=== PATIENT | female | born 1960 | race Caucasian/White ===

== ENCOUNTER → 2024-05-04 | Outpatient (CLI) | payer OTHER ==
[~2024-05-04] MED LIST: ALBU90OI; Aspir 8181 MG PO; FOLI1; HYDROCODONE-AC1 EA19; METHIMAZOLE 5 MG TAB; METHOTREXATE2.5 M1; MOBIC15 MG; OZEMPIC; VITAMIN D3; ZOCOR20 MG
[2024-05-10 23:49] LABS: 6-ACETYLMORPHINE, URN, QUANT <10 ng/mL; CODEINE, URN, QUANT <20 ng/mL; HYDROCODONE, URN, QUANT 31 ng/mL; HYDROMORPHONE, URN, QUANT <20 ng/mL; MORPHINE, URN, QUANT <20 ng/mL; NORHYDROCODONE, URN, QUANT 239 ng/mL; NOROXYCODONE, URN, QUANT <20 ng/mL; NOROXYMORPHONE, URN, QUANT <20 ng/mL; OXYCODONE, URN, QUANT <20 ng/mL; OXYMORPHONE, URN, QUANT <20 ng/mL
== END ==
LOC: LAB 18:12 → LAB SHORT 18:12
PROVIDERS: Physician Assistant
DX: Z51.81 Encounter for therapeutic drug level monitoring (principal); Z79.891 Long term (current) use of opiate analgesic
CPT/HCPCS: G0480

== ENCOUNTER → 2024-09-18 | Outpatient (CLI) | payer OTHER ==
[2024-09-22 10:01] LABS: 6-ACETYLMORPHINE, URN, QUANT <10 ng/mL; CODEINE, URN, QUANT <20 ng/mL; HYDROCODONE, URN, QUANT 694 ng/mL; HYDROMORPHONE, URN, QUANT <20 ng/mL; MORPHINE, URN, QUANT <20 ng/mL; NORHYDROCODONE, URN, QUANT 570 ng/mL; NOROXYCODONE, URN, QUANT <20 ng/mL; NOROXYMORPHONE, URN, QUANT <20 ng/mL; OXYCODONE, URN, QUANT <20 ng/mL; OXYMORPHONE, URN, QUANT <20 ng/mL
== END | disposition home or self-care (01) ==
LOC: LAB SHORT 14:49 → LAB 14:49
PROVIDERS: Physician Assistant
DX: Z51.81 Encounter for therapeutic drug level monitoring (principal); Z79.891 Long term (current) use of opiate analgesic
CPT/HCPCS: G0480

== ENCOUNTER 2024-10-24 07:30 | Day surgery (SDC) | payer OTHER ==
[~2024-10-24] VITALS: Ht 157.5 cm; Wt 105.1 kg
[2024-10-24] VITALS (9 sets, daily range): BP systolic 115–134; BP diastolic 58–77
[~2024-10-24 07:30] MED LIST changes: +ASPI81CH PO; +CALCIUM CIT 311 EAC7 PO; +FOLI1 PO; +MELO7.5 PO; +METHI10 PO; +METTREX2.5 PO; +Norco 5-325 Ta1 EACH PO; +Norco 7.5-3251 EACH PO; +OZEMPIC0.25 MG/02 SC; +ZOCOR20 MG PO
[2024-10-24] MEDS ORDERED: Chlorhexidine Mouth Care 15 ML UDC MT SCH (07:40)
[2024-10-24] MEDS ORDERED: OxyCODONE HCL 10 MG TABCR PO SCH (07:40)
[2024-10-24] MEDS ORDERED: Ropivacaine 0.5% HCl/Pf 123.125 MG,EPINEPHrine HCL 0.25 MG,Ketorolac Tromethamine 15 MG... INFIL SCH (07:40)
[2024-10-24] MEDS ORDERED: Tranexamic Acid 100 ML IV SCH (07:40)
[2024-10-24] MEDS ORDERED: Lactated Ringer's 1,000 ML IV SCH ×2 (07:40→09:50)
[2024-10-24] MEDS ORDERED: Acetaminophen 500 MG Tab PO SCH ×2 (07:40→16:00)
[2024-10-24] MEDS ORDERED: CeFAZolin Sodium 2,000 MG in NS 100 ML IV SCH ×2 (08:20→18:30)
[2024-10-24] MEDS ORDERED: FLU VACC TS2024-25(6MOS UP)/PF 45 MCG/0.5 ML SYRINGE IM SCH (09:40)
[2024-10-24] MEDS ORDERED: Bisacodyl 10 MG Supp PR PRN (09:40)
[2024-10-24] MEDS ORDERED: DiphenhydrAMINE HCL 25 MG Cap PO PRN (09:40)
[2024-10-24] MEDS ORDERED: Promethazine HCl 25 MG Tab PO PRN (09:45)
[2024-10-24] MEDS ORDERED: HYDROmorphone HCl/Pf 1MG SYR IV PRN (09:45)
[2024-10-24] MEDS ORDERED: OxyCODONE HCL 5 MG TAB PO PRN ×2 (09:45)
[2024-10-24] MEDS ORDERED: propofoL 50 ML IV ONE (09:47)
[2024-10-24] MEDS ORDERED: Metoclopramide HCl 5MG / ML 2ML Vial IV PRN (09:50)
[2024-10-24] MEDS ORDERED: Magnesium Hydroxide Conc 10 ML UDC PO PRN (09:50)
[2024-10-24] MEDS ORDERED: Ondansetron HCl 2 MG / ML 2ML Vial IV PRN ×2 (09:50→10:45)
[2024-10-24] MEDS ORDERED: Midazolam HCl 1MG / ML 2ML Vial ONE (10:01)
[2024-10-24] MEDS ORDERED: FentaNYL Citrate 50 MCG/ML 2 ML Injection ONE ×2 (10:01→12:09)
[2024-10-24] MEDS ORDERED: Dexamethasone Sod Phos 10 MG/ML 1ML VIAL ONE (10:33)
[2024-10-24] MEDS ORDERED: propofoL 20 ML IV ONE ×4 (10:59→12:02)
[2024-10-24] MEDS ORDERED: ASPI81CH PO (17:10)
[2024-10-24] MEDS ORDERED: Ketorolac Tromethamine 15mg Vial IV SCH (18:00)
--- NOTE | 2024-10-24 18:58 | NUR ---
DISCHARGE SUMMARY POD0 R TKA, A/OX4, VSS, TOLERATING PO, PAIN WELL MANAGED, WORKED WITH THERAPY AND IS AMBULATING WELL, CRISTAL C/D/I. DISCUSSED DC INSTRUCTION INCLUDING HOME CARE, MEDICATIONS, AND FOLLOW UP APPOINTMENTS. NO QUESTIONS AT THIS TIME, IV ACCESS REMOVED DURING DC INSTRUCTIONS.ESCORTED OUT VIA WC TO PRIVATE AUTO TO GO HOME.
[2024-10-24] MEDS ORDERED: Docusate Sodium 100 MG Cap PO SCH (21:00)
[2024-10-24] MEDS ORDERED: Atorvastatin 10 MG Tab PO SCH (21:00)
[2024-10-25] MEDS ORDERED: Calcium Citrate 315 MG/Vitamin D 250 IU Tab PO SCH (09:00)
[2024-10-25] MEDS ORDERED: methIMAzole 5 MG TABLET PO SCH (09:00)
[2024-10-25] MEDS ORDERED: Aspirin 81 MG Chew PO SCH (09:00)
[2024-10-25] MEDS ORDERED: Folic Acid 1 MG TAB PO SCH (09:00)
== END 2024-10-24 18:14 | disposition home or self-care (01) ==
LOC: ORSCMMR 07:30 → ORD 09:15 → ORSCMMR 09:15 → SURS 12:40 → ORSCMMR 12:40 → SURS 18:14
PROVIDERS: Orthopaedic Surgery
PROC: 0SRC0JA Replacement of Right Knee Joint with Synthetic Substitute, Uncemented, Open Approach (ICD-10-PCS; principal; 2024-10-24 09:15)
DX: M17.11 Unilateral primary osteoarthritis, right knee (principal); E11.9 Type 2 diabetes mellitus without complications; E03.9 Hypothyroidism, unspecified; E66.01 Morbid (severe) obesity due to excess calories; Z68.41 Body mass index [BMI] 40.0-44.9, adult; Z87.891 Personal history of nicotine dependence; Z79.899 Other long term (current) drug therapy; Z79.85 Long-term (current) use of injectable non-insulin antidiabetic drugs
CPT/HCPCS: 73560-RT; 82947; 97110; 97162; 97530; A9270; C1713; C1776; J0171; J0690; J0735; J1100; J1885; J2250; J2704; J2795; J3010; J7120

== ENCOUNTER → 2024-12-04 | Outpatient (CLI) | payer OTHER ==
[2024-12-08 11:23] LABS: 6-ACETYLMORPHINE, URN, QUANT <10 ng/mL; CODEINE, URN, QUANT <20 ng/mL; HYDROCODONE, URN, QUANT 120 ng/mL; HYDROMORPHONE, URN, QUANT <20 ng/mL; MORPHINE, URN, QUANT <20 ng/mL; NORHYDROCODONE, URN, QUANT 965 ng/mL; NOROXYCODONE, URN, QUANT <20 ng/mL; NOROXYMORPHONE, URN, QUANT <20 ng/mL; OXYCODONE, URN, QUANT <20 ng/mL; OXYMORPHONE, URN, QUANT <20 ng/mL
== END | disposition home or self-care (01) ==
LOC: LAB SHORT 12:26 → LAB 12:26
PROVIDERS: Physician Assistant
DX: Z51.81 Encounter for therapeutic drug level monitoring (principal); Z79.891 Long term (current) use of opiate analgesic
CPT/HCPCS: G0480

== ENCOUNTER → 2025-05-30 | Outpatient (CLI) | payer OTHER ==
[2025-05-30 13:02] LABS: Creatinine, Urine Random 159.0 mg/dL (27.00-270.00); Microalb/Creat Ratio UR, Rand 9.623 mg/g (0.000-30.000); Microalbumin, Random Urine 15.3 mg/L (0.000-20.000)
== END ==
LOC: LAB SHORT 11:07 → LAB 11:07
PROVIDERS: Physician Assistant
DX: E11.69 Type 2 diabetes mellitus with other specified complication (principal)
CPT/HCPCS: 82043; 82570